=== PATIENT | female | born 1945 | race Caucasian/White ===

== ENCOUNTER 2019-11-17 16:33 | Outpatient (CLI) | payer MEDICARE, OTHER, SELFPAY ==
[2019-11-17 17:05] LABS: Basophils % 0.7 %; Eosinophils # 0.2 10^3/uL (0.0-0.8); Eosinophils % 3.9 %; Hematocrit 44.1 % (37.0-47.0); Lymphocytes # 1.6 10^3/uL (0.8-4.8); Mean Corpuscular HGB Conc 31.7 g/dL (30.0-36.0); Mean Corpuscular Hemoglobin 31.6 pg (28.0-34.0); Mean Corpuscular Volume 99.5 fL (81-99); Mean Platelet Volume 10.5 fL (7.4-10.4); Monocytes # 0.5 10^3/uL (0.2-0.9); Neutrophils # 3.5 10^3/uL (1.8-7.7); Neutrophils % 60.1 %; Nucleated Red Blood Cells % 0 %; Platelet Count 178 10^3/cmm (130-400); Red Blood Count 4.43 10^6/uL (4.1-5.3); Red Cell Distribution Width 12.4 % (12.1-15.1); White Blood Count 5.9 10^3/uL (4.0-10.0)
[2019-11-17 19:29] LABS: Alanine Aminotransferase 9 U/L (0-33); Albumin Level 4.5 g/dL (3.5-5.2); Alkaline Phosphatase 126 IU/L (35-105); Anion Gap 13.1 (5-19); Aspartate Amino Transferase 16 U/L (0-32); Blood Urea Nitrogen 18 mg/dL (8-23); Calcium 10.6 mg/dL (8.5-10.5); Carbon Dioxide 29 mmol/L (22-29); Chloride 101 mmol/L (98-107); Globulin 2.5 g/dL (1.3-4.6); Glucose 115 mg/dL (74-106); Potassium 4.1 mmol/L (3.5-5.1); Sodium 139 mmol/L (136-145); Total Bilirubin 0.3 mg/dL (0.15-1.2)
[2019-11-17 20:31] LABS: Estmated Average Glucose 105; Hemoglobin A1C 5.3 % (4.0-6.0)
[2019-11-18 04:18] LABS: 25 Hydroxy Vitamin D 22 ng/mL (30-100)
== END 2019-11-17 16:34 | disposition home or self-care (01) ==
LOC: LAB 16:33
PROVIDERS: Family Provider General Practice; PCP Family Medicine; Visit Provider General Practice
DX: E55.9 Vitamin D deficiency, unspecified (principal); R53.82 Chronic fatigue, unspecified; E16.2 Hypoglycemia, unspecified
CPT/HCPCS: 36415; 80053; 82306; 83036; 85025

== ENCOUNTER 2020-01-01 12:35 | Outpatient (CLI) | payer MEDICARE, OTHER, SELFPAY ==
--- NOTE | 2020-01-01 12:50 | CT_ITS ---
WS: [id number] CTA THORACIC AORTA WITH AND WITHOUT CONTRAST. HISTORY: POST OP AORTIC ANEURYSM GRAFT TECHNIQUE: CT imaging of the thorax is performed with and without contrast. After noncontrast imaging is performed, CT angiogram is performed during injection of Omnipaque 350; 95 mL IV.. Sagittal and c oronal reconstructions, sagittal and coronal MIP imaging is submitted. All CT scans at [facility] use at least one of these dose optimization techniques: automated exposure control; mA and/o r kV adjustment per patient size (includes targeted exams where dose is matched to clinical indicatio n); or iterative reconstruction. DLP: 1408.21 mGycm COMPARISON: 03/11/2015 Status post grafting of the thoracic aorta many years ago. As compared to 03/11/2015 grafting at the p roximal ascending aorta is identified. The previously described very large ascending aortic aneurysm on 2013 examination has significantly decreased in size. Maximum diameter just above the aortic valve plane is 4.1 cm which is similar to the prior examination but improved since 2014. 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 Descending aorta has returned to normal caliber at the vini measuring 3.1 cm. 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 There is no contrast extravasation or p eriaortic hematoma. Pulmonary artery size is normal. Mild enlargement of the heart with no pericardial effusion. Atelectasis adjacent to the descending th oracic aorta. No pneumonia or pulmonary nodules. Prior LEFT mastectomy. Atherosclerosis continues into the upper abdominal aorta. Several small hepatic cysts. The largest in the RIGHT lobe measures 10 mm. Prior median sternotomy. Osteopenia. CT/CT angio chest 51224 IMPRESSION: 1. Status post aortic grafting of the ascending aorta. Caliber of the ascendin g aorta is similar to the prior study of 03/11/2015 measuring 4.1 cm. 2. There has been a slight increase in size of the transverse diameter at the aortic arch. As compared to the study of 03/11/2015 measurements in a similar lo cation have increased from 5.5 cm to 6.1 cm. 3. Normal caliber descending aorta. 4. No periaortic hematoma. 5. No pericardial effusion.
[2020-01-01] MEDS: iohexol 350 mg/mL 100 mL Btl IV (13:17)
== END 2020-01-01 12:36 | disposition home or self-care (01) ==
LOC: RADWPI 12:39
PROVIDERS: Family Provider General Practice; PCP Family Medicine; Visit Provider General Practice
DX: Z95.828 Presence of other vascular implants and grafts (principal)
CPT/HCPCS: 71275; Q9967

== ENCOUNTER 2024-10-23 10:58 | Outpatient (CLI) | payer MEDICARE, SELFPAY ==
--- NOTE | 2024-10-23 11:05 | MM_ITS ---
WS: [id number] RIGHT 3D TOMOSYNTHESIS DIGITAL MAMMOGRAPHY WITH CAD CLINICAL INFORMATION: HX OF BREAST CANCER HISTORY: LEFT breast cancer with LEFT mastectomy COMPARISON: 2018 TECHNIQUE: 3 views of the right breast were obtained. FINDINGS: The right breast is composed of extremely dense tissue, which can limit the detection of small underl jacki mass lesions. Punctate and lucent centered calcifications. Biopsy clip RIGHT breast. Vascular ca lcification. No suspicious focal mass, asymmetry, calcifications, or architectural distortion. No evidence of nitish gnancy. MM/MM diag RT tomosynthesis 68056 IMPRESSION: DENSITY: The breasts are extremely dense, which lowers the sensitivity of mammo graphy. BI-RADS: 2 - Benign FOLLOW UP: 1 Year Follow-up Recommend return to annual diagnostic mammography.
== END 2024-10-23 10:59 | disposition home or self-care (01) ==
PROVIDERS: Family Provider General Practice; PCP Family Medicine; Visit Provider Clinical Nurse Specialist Family Health
DX: N63.10 Unspecified lump in the right breast, unspecified quadrant (principal); R92.30 Dense breasts, unspecified; R92.1 Mammographic calcification found on diagnostic imaging of breast
CPT/HCPCS: 77061; G0279